=== PATIENT | female | born 1990 | race Caucasian/White ===

== ENCOUNTER 2017-09-19 14:24 | Outpatient (CLI) | payer BC ==
[~2017-09-19] VITALS: Ht 154.9 cm; Wt 81.7 kg
[2017-09-19] MEDS ORDERED: LACTATED RINGER'S 1000 ML IV STA (14:50)
[2017-09-19] MEDS ORDERED: PRENTAB9 PO (15:00)
[2017-09-19] MEDS ORDERED: BREO1INH INH (15:17)
[2017-09-19] MEDS ORDERED: BUPR75TA5 PO (15:17)
[2017-09-19] MEDS ORDERED: ALBU83IN INH (15:17)
[2017-09-19 15:27] LABS: MEAN CORPUSCULAR HEMOGLOBIN 30.4 pg (27.0-33.0); MEAN CORPUSCULAR HGB CONC 32.9 g/dl (32.0-36.5); MEAN CORPUSCULAR VOLUME 92.4 fl (80.0-96.0); PLATELET COUNT, AUTOMATED 322 10^3/uL (150-450); RED CELL DISTRIBUTION WIDTH 12.4 % (11.5-14.5); WHITE BLOOD COUNT 9.4 10^3/uL (4.0-10.0)
[2017-09-19] MEDS ORDERED: SIMETHICONE 80 MG CHEW TAB PO ONE (15:45)
[2017-09-19 15:46] LABS: ALBUMIN 2.8 GM/DL (3.2-5.2); ALKALINE PHOSPHATASE 152 U/L (45-117); ALT/SGPT 18 U/L (12-78); AMYLASE 45 U/L (25-115); ANION GAP 10 MEQ/L (8-16); AST/SGOT 11 U/L (7-37); BILIRUBIN,TOTAL 0.4 MG/DL (0.2-1.0); BLOOD UREA NITROGEN 8 MG/DL (7-18); CALCIUM LEVEL 8.7 MG/DL (8.5-10.1); CARBON DIOXIDE LEVEL 21 MEQ/L (21-32); CHLORIDE LEVEL 108 MEQ/L (98-107); CREATININE FOR GFR 0.69 MG/DL (0.55-1.02); GLOMERULAR FILTRATION RATE > 60.0 (>60); GLUCOSE, FASTING 83 MG/DL (70-105); POTASSIUM SERUM 4.1 MEQ/L (3.5-5.1); SODIUM LEVEL 139 MEQ/L (136-145); TOTAL PROTEIN 6.3 GM/DL (6.4-8.2)
[2017-09-19 16:12] VITALS: BP 94/54
[2017-09-19] MEDS: LR 1,000 ML IV SCH ×2 (16:42→22:50)
[2017-09-19] MEDS ORDERED: PROMETHAZINE INJ 25 MG/ML VIAL (J2550) IV ONE (16:45)
[2017-09-19] MEDS ORDERED: MORPHINE 2 MG/ML 1ML SYRINGE IV ONE ×2 (16:45→19:45)
--- NOTE | 2017-09-19 17:10 | REP ---
Clinical: Acute abdominal pain; well-being . Comparison: None . Findings: Examination demonstrates a single live intrauterine in cephalic presentation. motion is identified by technologist. Placenta is noted posterior right lateral and grade zero without evidence for placenta previa or abruption. Amniotic fluid volume is normal. Cervix measures 3.9 cm in length and appears closed. No evidence for nuchal cord. Gestational age by LMP 32 weeks 5 days with NIMO 11/09/2017 . Gestational age by current measurements 31 weeks 4 days with NIMO 11/17/2017 . FHR equals 144 beats per minute. Estimated weight 1693 grams ( 14th percentile). Limited anatomical assessment demonstrates no gross abnormality. Amniotic fluid index equals 12.7 cm (8.4 - 24.4). Umbilical cord SD ratio equals 2.54 (2.15 - 3.15) Impression: Single live advanced gestation in cephalic presentation. Estimated weight within normal limits. Amniotic fluid volume normal. No gross abnormalities are identified. Signed by Jam Casas MD 09/19/2017 05:02 P
[2017-09-19 17:56] VITALS: BP 97/56
[2017-09-19 18:49] LABS: CALCIUM OXALATE CRYSTALS SMALL
[2017-09-19] MEDS ORDERED: MORPHINE 4 MG/ML 1ML SYRINGE IV ONE (19:30)
[2017-09-19 19:43] VITALS: BP 111/55
[2017-09-19 21:14] VITALS: BP 112/63
--- NOTE | 2017-09-19 21:20 | REPUSA ---
MRI of the abdomen without contrast Clinical History: left-sided abdominal pain. . Technique: Multiecho, Multiplanar MRI images of the abdomen were obtained without administration of c ontrast. Comparison: None. Findings: The hepatic duct measures 5 mm in diameter, the common bile duct measures 4 mm in diameter. No stenosis or obstruction is seen. The liver, spleen, pancreas, kidneys, and adrenal glands are unr emarkable. A gravid uterus is noted. The fetus is in a cephalic position. The placenta appears unrema rkable. There is no evidence of lymphadenopathy. There is a small amount of ascites in the right uppe r quadrant. Impression: 1. No focal abnormality to explain the patient's pain. 2. Intrauterine is partially visualized and appears unremarkable. 3. Small amount of right upper quadrant ascites.
[2017-09-19] MEDS ORDERED: MORPHINE 10 MG/ML 1ML VIAL IV ONE (22:30)
[2017-09-19] MEDS ORDERED: MORPHINE 10 MG/ML 1ML VIAL SC ONE (22:30)
[2017-09-19] MEDS: PROMETHAZINE INJ 25 MG/ML VIAL (J2550) IV PRN (22:36)
--- NOTE | 2017-09-19 22:38 | HPE ---
DATE OF ADMISSION: 09/19/2017 REASON FOR EVALUATION: Diffuse upper abdominal pain. HISTORY OF PRESENT ILLNESS: Mrs. Joshua is a 26-year-old 5, para 1 who presents at 32 weeks 5 days estimated gestational age with an estimated date of delivery (NIMO) of 11/09/2017, with diffuse abdominal pain. Ms. Joshua presents as an unregistered patient as she has obtained care in [place] under Dr. Ortiz. She reports that her pain initially started mild earlier this morning, but shortly after eating lunch, the pain became severe and within an hour reported to labor and delivery for evaluation. She reports nausea and some vomiting. Denies any vaginal bleeding, leakage of fluid, contractions, dysuria, vaginal discharge, fevers, or chills. Nothing tends to make the pain better. Certain positions appears to make her pain worse. Her course has been unremarkable. She initiated care in her first trimester and appears to be appropriate throughout. PAST MEDICAL HISTORY: Gastroesophageal reflux disease. PAST SURGICAL HISTORY: She had a gastric bypass Alysia-en-Y in October of 2016. She had a cholecystectomy 2 years ago. She had a right knee meniscus and anterior cruciate ligament (ACL) repair. PAST OBSTETRICAL HISTORY: She reports herself as a 5, para 1. She has had one term vaginal delivery. She has had two miscarriages and history of an ectopic . ALLERGIES: Cefaclor and nuts. SOCIAL HISTORY: She denies any alcohol, tobacco, or drug use during her . PHYSICAL EXAMINATION: Her vital signs are stable, she is afebrile. She has a category 1 heart rate tracing, no contractions on tocometer. Her general appearance appears uncomfortable, no acute distress. Cardiovascular: Heart regular rate and rhythm. Her lungs are clear to auscultation bilaterally. Her abdomen has diffuse tenderness in the upper quadrants. Uterus is palpable, nontender, and gravid. Pelvic exam: Cervix is long and closed, station is high. LABORATORY DATA: Her urinalysis is unremarkable. Chemistry is unremarkable. Normal liver enzymes. Normal amylase and lipase. CBC: White count 9.4, hemoglobin 12, hematocrit 36.5 platelets 322. Transabdominal ultrasound showed an active fetus, estimated weight was 1693, cephalic presentation, normal amniotic fluid, posterior placenta without evidence of previa or abruption. ASSESSMENT: 1. Mrs. Joshua is a 26-year-old 5, para 1 at 32 weeks 5 days estimated gestational age with acute onset of severe upper abdominal pain. 2. Reassuring status. PLAN: After reviewing laboratory evaluation and physical exam, have excluded appendicitis, pancreatitis, placenta abruption, uterine rupture, hepatic disorder. My concern is with her recent gastric bypass and plan to obtain an abdominal MRI and to rule out perforation or obstruction. EMILY
[2017-09-19 22:40] VITALS: BP 87/50
[2017-09-19] MEDS ORDERED: PANTOPRAZOLE 40MG INJ (PROTONIX) (C9113) IV ONE (22:45)
[2017-09-19] MEDS ORDERED: GI COCKTAIL 50ML BTL(HYOSCYAMINE/MAALOX/LIDOCAINE VISCOUS)(1:3:1) PO ONE (23:00)
[2017-09-19] MEDS: SUCRALFATE SUSP 1GM/10ML UD PO SCH (23:14)
[2017-09-19 23:35] VITALS: BP 92/58
[2017-09-20 01:36] VITALS: BP 90/53
[2017-09-20 04:15] VITALS: BP 115/58
[2017-09-20 04:56] LABS: MEAN CORPUSCULAR HEMOGLOBIN 30.7 pg (27.0-33.0); PLATELET COUNT, AUTOMATED 299 10^3/uL (150-450); RED CELL DISTRIBUTION WIDTH 12.3 % (11.5-14.5); WHITE BLOOD COUNT 9.4 10^3/uL (4.0-10.0)
[2017-09-20] MEDS: SUCRALFATE SUSP 1GM/10ML UD PO SCH (05:00)
[2017-09-20 05:20] LABS: ALBUMIN 2.5 GM/DL (3.2-5.2); ALBUMIN/GLOBULIN RATIO 0.83 (1.00-1.93); ALKALINE PHOSPHATASE 134 U/L (45-117); ALT/SGPT 18 U/L (12-78); AMYLASE 35 U/L (25-115); ANION GAP 8 MEQ/L (8-16); AST/SGOT 11 U/L (7-37); BILIRUBIN,TOTAL 0.4 MG/DL (0.2-1.0); BLOOD UREA NITROGEN 6 MG/DL (7-18); CALCIUM LEVEL 8.5 MG/DL (8.5-10.1); CARBON DIOXIDE LEVEL 25 MEQ/L (21-32); CHLORIDE LEVEL 107 MEQ/L (98-107); CREATININE FOR GFR 0.61 MG/DL (0.55-1.02); GLOMERULAR FILTRATION RATE > 60.0 (>60); GLUCOSE, FASTING 77 MG/DL (70-105); POTASSIUM SERUM 4.2 MEQ/L (3.5-5.1); SODIUM LEVEL 140 MEQ/L (136-145); TOTAL PROTEIN 5.5 GM/DL (6.4-8.2)
[2017-09-20] MEDS: PROMETHAZINE INJ 25 MG/ML VIAL (J2550) IV PRN (06:25)
[2017-09-20 06:27] VITALS: BP 103/58
[2017-09-20] MEDS: LR 1,000 ML IV SCH (07:39)
[2017-09-20 09:17] VITALS: BP 109/60
== END 2017-09-20 09:20 | disposition short-term general hospital (02) ==
LOC: M LDO 14:24
PROVIDERS: ATTEND Obstetrics & Gynecology
DX: O99.89 Other specified diseases and conditions complicating pregnancy, childbirth and the puerperium (principal); R10.84 Generalized abdominal pain; O99.613 Diseases of the digestive system complicating pregnancy, third trimester; R18.8 Other ascites; O99.843 Bariatric surgery status complicating pregnancy, third trimester; O21.9 Vomiting of pregnancy, unspecified; Z88.1 Allergy status to other antibiotic agents; Z91.010 Allergy to peanuts; Z3A.32 32 weeks gestation of pregnancy
CPT/HCPCS: 36415; 59025; 74181; 76811; 76820; 80053; 81001; 82150; 83605; 83690; 85027; 86850; 86900; 86901; 87086; 96372; 96374; 96375; 96376; C9113